=== PATIENT | male | born 1970 | race Caucasian/White ===

== ENCOUNTER 2018-03-30 18:05 | Emergency (ER) | payer OTHER ==
[~2018-03-30] VITALS: Ht 152.4 cm; Wt 86.2 kg
== END 2018-03-30 21:33 | disposition home or self-care (01) ==
LOC: ER 18:05
DX: S01.22XA Laceration with foreign body of nose, initial encounter (principal); S19.89XA Other specified injuries of other specified part of neck, initial encounter; M54.2 Cervicalgia; M62.838 Other muscle spasm; W45.8XXA Other foreign body or object entering through skin, initial encounter; Y93.89 Activity, other specified; Y92.832 Beach as the place of occurrence of the external cause; Y99.8 Other external cause status

== ENCOUNTER 2018-04-05 13:57 | Emergency (ER) | payer OTHER ==
[~2018-04-05] VITALS: Ht 177.8 cm; Wt 86.2 kg
== END 2018-04-05 16:18 | disposition home or self-care (01) ==
LOC: ER 13:57
DX: Z48.02 Encounter for removal of sutures (principal)